=== PATIENT | female | born 1960 | race Caucasian/White ===

== ENCOUNTER 2022-10-27 15:31 | Outpatient (OUT) | payer OTHER, SELFPAY ==
[2022-10-29 04:38] LABS: FSH 86.9 mIU/mL (.); Progesterone <0.1 ng/mL (.); Prolactin 7.1 ng/mL (4.8-23.3)
[2022-11-03 22:06] LABS: Estrogens, Total 44 pg/mL (40-244)
== END 2022-10-27 15:32 ==
LOC: LAB 15:37
PROVIDERS: PCP Nurse Practitioner Family; Visit Provider Nurse Practitioner Family
DX: N95.1 Menopausal and female climacteric states (principal)
CPT/HCPCS: 36415; 82672; 83001; 84144; 84146

== ENCOUNTER 2023-03-14 17:28 | Emergency (ER) | payer OTHER, SELFPAY ==
[2023-03-14] VITALS (15 sets, daily range): BP systolic 113–147; BP diastolic 59–74; PULSE 77–90; RESP 15–24; TEMP 36.7; O2SAT 92–99; BMI 23.3
--- NOTE | 2023-03-14 17:42 | ED_ITS ---
HPI - General Adult General Chief complaint: Upper Respiratory Infection Stated complaint: URTI Time Seen by Provider: 03/14/23 17:34 Source: patient Mode of arrival: walk-in Limitations: no limitations History of Present Illness HPI narrative: patient is a 62-year-old female to history of chronic obstructive pulmonary disease who presents the emergency department for a one-week history of cough with sputum production. She denies objective fevers. She has had some diarrhea that has improved. She denies chest pain but states she has heaviness in her chest associated with the cough and mild shortness of breath. She states she has similar symptoms every year, she has had pneumonia in the past. She continues to smoke half a pack of cigarettes per day. She states her grandson was sick with upper respiratory symptoms and then she developed the same symptoms shortly after. She has completed a Z-Norris that was prescribed by her PCP, she finished this two days ago and reports no improvement. Related Data Home Medications Medication Instructions Recorded Confirmed albuterol sulfate 2.5 mg/3 mL 2.5 mg inhalation PRN 03/14/23 03/14/23 (0.083 %) solution for nebulization ezetimibe 10 mg tablet 10 mg PO DAILY 03/14/23 03/14/23 methocarbamol 500 mg tablet 500 mg PO DAILY 03/14/23 03/14/23 omeprazole 40 mg capsule,delayed 40 mg PO DAILY 03/14/23 03/14/23 release pantoprazole 40 mg tablet,delayed 40 mg PO DAILY 03/14/23 03/14/23 release venlafaxine 37.5 mg 37.5 mg PO DAILY 03/14/23 03/14/23 capsule,extended release 24 hr Previous Rx's Medication Instructions Recorded gxuluovswyfijcn-lygmgpsncilhija-YZ 5 ml PO Q6H PRN cough #118 mL 03/14/23 2 mg-30 mg-10 mg/5 mL oral syrup (Bromfed DM) doxycycline hyclate 100 mg capsule 100 mg PO BID 7 days #14 caps 03/14/23 Allergies Allergy/AdvReac Type Severity Reaction Status Date / Time Penicillins Allergy Mild Verified 03/14/23 17:42 Review of Systems ROS Constitutional Denies: fever or chills Ears, nose, mouth, and throat Reports: nasal congestion; Denies: throat pain Cardiovascular Denies: chest pain Respiratory Reports: shortness of breath, cough and wheezing Gastrointestinal Denies: nausea or vomiting Genitourinary Denies: painful urination Musculoskeletal Denies: back pain Integumentary/Breast Denies: rash Hematologic/Lymphatic Denies: easy bruising PFSH [facility] Social History Smoking status: Current every day smoker Exam Narrative Exam Narrative: Gen.: Awake, alert, in no distress Head: Normocephalic, atraumatic ENT: Moist mucous membranes Respiratory: No respiratory distress, inspiratory and expiratory wheezing with scattered rhonchi, patient speaks in full sentences Cardio: Regular rate and rhythm Extremities: Moves extremities equally, no pedal edema Psych: Normal mood and affect Neuro: No focal neuro deficit Skin: Warm, dry, intact Constitutional Vital Signs, click to edit/add: Last Vital Signs Temp 98.1 F 03/14/23 17:34 Pulse 85 03/14/23 18:27 Resp 20 03/14/23 18:27 BP 147/74 H 03/14/23 17:34 Pulse Ox 93 L 03/14/23 18:17 O2 Del Method Room Air 03/14/23 17:34 Course Vital Signs Vital signs: Vital Signs Temperature 98.1 F 03/14/23 17:34 Pulse Rate 89 03/14/23 17:34 Respiratory Rate 18 03/14/23 17:34 Blood Pressure 147/74 H 03/14/23 17:34 Pulse Oximetry 96 03/14/23 17:34 Oxygen Delivery Method Room Air 03/14/23 17:34 Temperature 98.1 F 03/14/23 17:34 Pulse Rate 85 03/14/23 18:27 Respiratory Rate 20 03/14/23 18:27 Blood Pressure 147/74 H 03/14/23 17:34 Pulse Oximetry 93 L 03/14/23 18:17 Oxygen Delivery Method Room Air 03/14/23 17:34 Medical Decision Making MDM Narrative Medical decision making narrative: lab studies within normal limits, chest x-ray with no evidence of acute cardiopulmonary changes. Patient treated with breathing treatments in the Emergency Room, she does not wish to take additional steroids and she states they do not make her feel well. She will be placed on doxycycline and Bromfed- DM. Continue breathing treatments at home and return to the Emergency Room if symptoms change or worsen. Medical Records Medical records reviewed: Yes I reviewed the patient's medical records Lab Data Lab results reviewed: Yes I reviewed the patient's lab results Labs: Lab Results 03/14/23 Range/Units 18:00 WBC 4.3 (4.0-11.0) 10^3/uL RBC 4.04 L (4.20-5.40) 10^6/uL Hgb 12.7 (12.0-16.0) g/dL Hct 37.9 (36.0-48.0) % MCV 93.8 (81.0-99.0) fL MCH 31.4 (26.7-34.0) pg MCHC 33.5 (29.9-35.2) g/dL RDW 12.6 (11.0-15.0) % Plt Count 207 (150-450) 10^3/uL MPV 11.2 (9.5-13.5) fL Neut % (Auto) 40.0 L (43.0-75.0) % Lymph % (Auto) 43.4 (20.5-60.0) % [place] % (Auto) 14.8 H (1.7-12.0) % Eos % (Auto) 0.7 L (0.9-7.0) % Baso % (Auto) 0.9 (0.2-2.0) % Neut # (Auto) 1.7 (1.4-6.5) 10^3/uL Lymph # (Auto) 1.9 (1.2-3.8) 10^3/uL [place] # (Auto) 0.6 (0.3-0.8) 10^3/uL Eos # (Auto) 0.0 (0.0-0.7) 10^3/uL Baso # (Auto) 0.0 (0.0-0.1) 10^3/uL Abs Immat Gran (auto) 0.01 (0.00-0.03) 10^3/uL Imm/Tot Granulo (auto) 0.2 (0.0-0.5) % Sodium 139 (136-145) mmol/L Potassium 3.5 (3.5-5.1) mmol/L Chloride 102 (98-107) mmol/L Carbon Dioxide 30.1 (21.0-32.0) mmol/L Anion Gap 10.4 BUN 20.0 H (7.0-18.0) mg/dL Creatinine 1.01 (0.55-1.02) mg/dL Est GFR ( Amer) >60 (>=60) Est GFR (Non-Af Amer) 55 L (>=60) BUN/Creatinine Ratio 19.8 Glucose 133 H (74-106) mg/dL Calcium 9.4 (8.5-10.1) mg/dL Total Bilirubin 0.2 (0.2-1.0) mg/dL AST 13 L (15-37) U/L ALT 20 (14-59) U/L Alkaline Phosphatase 31 L (46-116) U/L Troponin I High Sens <4.0 L (4.0-51.3) pg/mL NT-Pro-B Natriuret Pep 131.0 (<=900.0) pg/mL Total Protein 6.6 (6.4-8.2) g/dL Albumin 3.4 (3.4-5.0) g/dL Globulin 3.2 g/dL Albumin/Globulin Ratio 1.1 Imaging Data Chest x-ray: Attestation: I have reviewed the pertinent imaging results. ECG Data Attestation: I personally reviewed and interpreted this ECG as follows: (normal sinus rhythm at a rate of eighty-one, no acute ST elevation or ectopy. EKG reviewed by attending physician) Discharge Plan Discharge Chief Complaint: Upper Respiratory Infection Clinical Impression: Upper respiratory infection, Bronchitis Patient Disposition: Home, Self-Care Time of Disposition Decision: 18:57 Prescriptions / Home Meds: New doxycycline hyclate 100 mg capsule 100 mg PO BID 7 Days Qty: 14 0RF cnbnuvgdyuyyaaj-zpuwsopxs-XL [Bromfed DM] 2-30-10 mg/5 mL syrup 5 ml PO Q6H PRN (Reason: cough) Qty: 118 0RF No Action albuterol sulfate 2.5 mg /3 mL (0.083 %) solution for nebulization 2.5 mg inhalation PRN ezetimibe 10 mg tablet 10 mg PO DAILY venlafaxine 37.5 mg capsule,extended release 24hr 37.5 mg PO DAILY pantoprazole 40 mg tablet,delayed release (DR/EC) 40 mg PO DAILY omeprazole 40 mg capsule,delayed release(DR/EC) 40 mg PO DAILY methocarbamol 500 mg tablet 500 mg PO DAILY Instructions: Upper Respiratory Infection (ED), Acute Bronchitis (ED) Stand Alone Forms: Portal Instructions Referrals: GELACIO WASHINGTON [Primary Care Provider] - 1 week
--- NOTE | 2023-03-14 17:46 | PC.NURSE ---
Patient reports having cough/congestion x 10 days. seen at urgent care and given b-imu-ctsyxlmj 2 days ago. was also given a steroid pack but did not take due to intolerance to this in the past. patient reports productive cough that tastes like its infected. Patient reports sputum is thick and sometimes white, sometimes green. Patient reports history of pneumonia when having symptoms like this. Patient is a smoker but states she has only been able to smoke 2 cigarettes today. patient also taking zyrtec. grandson at home is ill with congestion as well.
--- NOTE | 2023-03-14 17:48 | XR_ITS ---
The [address] [address] Patient Name: JUAN DAUGHERTY MRN: [id number] date: 1960 Sex: F Assigned Patient Location: ED.MAIN Current Patient Location: ER Accession/Order Number: [id number] Exam Date: 03/14/2023 18:05 Report Date: 03/14/2023 18:50 At the request of: TOBY QUINTERO Procedure: XR chest 1V EXAMINATION: XR chest 1V 03/14/2023 3:49 PM PDT HISTORY: Cough TECHNIQUE: Single frontal view of the chest acquired. COMPARISONS: Chest x-ray 10/26/2012 FINDINGS: Lines/tubes/other: None. Heart and mediastinum: The heart and the mediastinum are within normal limits for technique. Bones: No acute osseous abnormality. Lungs: The lungs are clear. There is no evidence of pneumonia or pulmonary edema. Pleura: There is no significant pleural effusion or pneumothorax. Other: None. XR/XR chest 1V IMPRESSION: No acute cardiopulmonary abnormality. Electronically authenticated by: CHAVO CATHERINE Date: 03/14/2023 18:50
--- NOTE | 2023-03-14 17:48 | ECG_ITS ---
The [facility] Test Date: 2023-03-14 Pat Name: JUAN DAUGHERTY Department: Room: - Gender: Female Database Manager: : 1960 Requested By: GELACIO WASHINGTON Order Number: [id number] Reading MD: RAMY BOONE Measurements Intervals [place] Rate: 81 P: 90 NV: 160 QRS: -60 QRSD: 122 T: 67 QT: 378 QTc: 415 Interpretive Statements 1100 Sinus rhythm 2420 RSR (QR) in lead V1/V2, consistent with right ventricular conduction delay 2630 Left anterior fascicular block 3434 Septal myocardial infarction, age undetermined 9150 abnormal ECG No previous ECG available for comparison Electronically Signed On 03-15-2023 7:15:34 EDT by RAMY BOONE
[2023-03-14] MEDS: ALBUTEROL SULFATE 2.5 MG/3 ML VIAL NEB IH (18:12)
[2023-03-14] MEDS: IPRATROPIUM/ALBUTEROL SULFATE 3 ML AMPUL.NEB IH (18:12)
[2023-03-14 18:14] LABS: Basophils Percent Auto 0.9 % (0.2-2.0); Eosinophils Percent Auto 0.7 % (0.9-7.0); Hematocrit 37.9 % (36.0-48.0); Hemoglobin 12.7 g/dL (12.0-16.0); Immature Granulocytes Abs Auto 0.01 10^3/uL (0.00-0.03); Immature Granulocytes Pct Auto 0.2 % (0.0-0.5); Lymphocytes Absolute Auto 1.9 10^3/uL (1.2-3.8); Lymphocytes Percent Auto 43.4 % (20.5-60.0); Mean Corpuscular HGB Conc 33.5 g/dL (29.9-35.2); Mean Corpuscular Hemoglobin 31.4 pg (26.7-34.0); Mean Corpuscular Volume 93.8 fL (81.0-99.0); Mean Platelet Volume 11.2 fL (9.5-13.5); Monocytes Absolute Auto 0.6 10^3/uL (0.3-0.8); Monocytes Percent Auto 14.8 % (1.7-12.0); Neutrophils Absolute Auto 1.7 10^3/uL (1.4-6.5); Platelet Count 207 10^3/uL (150-450); Red Blood Count 4.04 10^6/uL (4.20-5.40); Red Cell Distribution Width 12.6 % (11.0-15.0); White Blood Count 4.3 10^3/uL (4.0-11.0)
[2023-03-14 18:37] LABS: Alanine Aminotransferase 20 U/L (14-59); Albumin Globulin Ratio 1.1; Albumin Level 3.4 g/dL (3.4-5.0); Alkaline Phosphatase 31 U/L (46-116); Anion Gap 10.4; Aspartate Amino Transferase 13 U/L (15-37); BUN Creatinine Ratio 19.8; Bilirubin Total 0.2 mg/dL (0.2-1.0); Calcium 9.4 mg/dL (8.5-10.1); Carbon Dioxide 30.1 mmol/L (21.0-32.0); Chloride 102 mmol/L (98-107); Estimated GFR (African America >60 (>=60); Estimated GFR (Non-African Ame 55 (>=60); Globulin 3.2 g/dL; Glucose 133 mg/dL (74-106); Potassium 3.5 mmol/L (3.5-5.1); Sodium 139 mmol/L (136-145); Total Protein 6.6 g/dL (6.4-8.2); Troponin I High Sensitivity <4.0 pg/mL (4.0-51.3)
== END 2023-03-14 19:16 | disposition home or self-care (01) ==
PROVIDERS: Physician Assistant; Emergency Provider Emergency Medicine; PCP Nurse Practitioner Family
DX: J06.9 Acute upper respiratory infection, unspecified (principal); J44.9 Chronic obstructive pulmonary disease, unspecified; F17.210 Nicotine dependence, cigarettes, uncomplicated; Z79.899 Other long term (current) drug therapy
CPT/HCPCS: 36415; 71045; 80053; 83880; 84484; 85025; 93005; 94640; 99285

== ENCOUNTER 2023-03-31 14:48 | Outpatient (OUT) | payer OTHER, SELFPAY ==
[2023-03-31 15:31] LABS: Bilirubin Urine NEGATIVE (NEGATIVE); Blood Urine NEGATIVE (NEGATIVE); Clarity Urine CLEAR (CLEAR); Color Urine YELLOW (YELLOW); Glucose Urine UA NEGATIVE (NEGATIVE); Ketones Urine NEGATIVE (NEGATIVE); Leukocyte Esterase Urine NEGATIVE (NEGATIVE); Nitrite Urine NEGATIVE (NEGATIVE); Protein Urine NEGATIVE (NEG/TRACE)
[2023-03-31 15:36] LABS: WBC Urine 0-2 #/HPF (NONE SEEN)
[2023-03-31 15:37] LABS: Bacteria Urine NONE SEEN #/HPF (NONE SEEN); Cast Seen? SEEN #/LPF (NONE SEEN); Crystals Seen? None Seen #/HPF (None Seen); Hyaline Casts Urine RARE; Mucus Urine NONE SEEN (NONE SEEN); RBC Urine NONE SEEN #/HPF (0-2); Squamous Epithelial Cell Urine RARE #/LPF (NONE/RARE)
== END 2023-03-31 14:49 | disposition home or self-care (01) ==
PROVIDERS: PCP Nurse Practitioner Family; Visit Provider Nurse Practitioner Family
DX: N39.0 Urinary tract infection, site not specified (principal)
CPT/HCPCS: 81001; 87086

== ENCOUNTER 2023-04-07 12:17 | Outpatient (OUT) | payer OTHER, SELFPAY ==
--- NOTE | 2023-04-07 12:21 | US_ITS ---
The [address] [address] Patient Name: JUAN DAUGHERTY MRN: [id number] date: 1960 Sex: F Assigned Patient Location: US Current Patient Location: US Accession/Order Number: [id number] Exam Date: 04/07/2023 12:27 Report Date: 04/07/2023 15:20 At the request of: SHANE CERDA Procedure: US pelvis EXAMINATION: US pelvis HISTORY: Pelvic Pain R10.2 COMPARISON: No relevant comparison available. FINDINGS: The uterus is not observed consistent with the provided history of hysterectomy The ovaries are not observed No free fluid or mass US/US pelvis IMPRESSION: Nonvisualization of the uterus and ovaries Electronically authenticated by: EDWARD KUMAR Date: 04/07/2023 15:20
--- NOTE | 2023-04-07 12:21 | US_ITS ---
The [address] [address] Patient Name: JUAN DAUGHERTY MRN: [id number] date: 1960 Sex: F Assigned Patient Location: US Current Patient Location: US Accession/Order Number: [id number] Exam Date: 04/07/2023 12:27 Report Date: 04/07/2023 13:44 At the request of: SHANE CERDA Procedure: US renal bladder EXAM: US renal bladder HISTORY: Dysuria R30.0 COMPARISON: None. TECHNIQUE: Ultrasound of the kidneys FINDINGS: The right kidney measures 13.0 x 6.6 x 5.4 cm and appears normal. The left kidney has been surgically removed. US/US renal bladder IMPRESSION: Normal-appearing right kidney. Status post left nephrectomy. Electronically authenticated by: AMADOR MYERS Date: 04/07/2023 13:44
== END 2023-04-07 12:18 | disposition home or self-care (01) ==
LOC: US 12:18
PROVIDERS: PCP Nurse Practitioner Family; Visit Provider Family Medicine
DX: R30.0 Dysuria (principal); R10.2 Pelvic and perineal pain; Z90.5 Acquired absence of kidney
CPT/HCPCS: 76770; 76856; 87070

== ENCOUNTER 2023-04-07 13:17 | Outpatient (REF) | payer OTHER, SELFPAY | END 2023-04-07 13:18 | disposition home or self-care (01) | LOC: LAB 13:17 | PROVIDERS: PCP Nurse Practitioner Family; Visit Provider Nurse Practitioner Family | DX: R30.0 Dysuria (principal) | CPT/HCPCS: 87070 ==

== ENCOUNTER 2023-10-07 08:06 | Outpatient (OUT) | payer OTHER, SELFPAY ==
--- OUTSIDE RECORDS SUMMARY | 2023-10-07 08:11 | XMS_ITS | CCD ---
Author Organization [facility] Care Team Providers Care Curing Finisher Name Role Phone GAUTAM ROBERTO Admitting Unavailable FELISA, GAUTAM Attending Unavailable TABATHA, CARRILLO Referring Unavailable TABATHA, CARRILLO Primary Care Unavailable FELISA, GAUTAM Admitting Unavailable FELISA, GAUTAM Attending Unavailable TABATHA, CARRILLO Referring Unavailable TABATHA, CARRILLO Primary Care Unavailable FELISA, GAUTAM Admitting Unavailable FELISA, GAUTAM Attending Unavailable TABATHA, CARRILLO Referring Unavailable TABATHA, CARRILLO Primary Care Unavailable FELISA, GAUTAM Admitting Unavailable FELISA, GAUTAM Attending Unavailable SELF, REFERRED Referring Unavailable TABATHA, CARRILLO Primary Care Unavailable FELISA, GAUTAM Admitting Unavailable FELISA, GAUTAM Attending Unavailable TABATHA, CARRILLO Referring Unavailable TABATHA, CARRILLO Primary Care Unavailable FELISA, GAUTAM Admitting Unavailable FELISA, GAUTAM Attending Unavailable TABATHA, CARRILLO Referring Unavailable TABATHA, CARRILLO Primary Care Unavailable PADMINI, GELACIO Primary Care Unavailable GRILLIS ., DR MIRIAM Nayak Admitting Unavaila ble ANIYA ., DR MIRIAM Nayak Attending Unavaila ralph TAPIA, DR AMADOR Carbajal Consulting Unavailable GRILLIS ., DR MIRIAM Nayak Consulting Unavaila ble GRILLIS ., DR MIRIAM Nayak Procedure Practitioner U MIRIAM Cho Unavailable IRINA ESCALANTE Consulting Unavailable JENNIFER BOOGIE Consulting Unavailable GEMBUSMERARI Consulting Unavailable PADMINI GELACIO Admitting Unavailable PADMINI, GELACIO Attending Unavailable PADMINI, GELACIO Primary Care Unavailable GELACIO WASHINGTON Consulting Unavailable Allergies Allergy Classification Reported Allergen(s) Allergy Type Date of Onset Reaction(s) Facility (2 sources) Ciprofloxacin Drug Allergy 11-11-2014 [facility] (2 sources) Penicillins Drug allergy (disorder) 07-02-2014 [facility] Problems Active Problems Problem Classification Problem Date Documented Da te Episodic/Chronic Anxiety disorders (1 source) Anxiety disorder, unspecified; Translations: [ANXIETY DISORDER UNSPECIFIED] Onset: 04-27-2022 Chronic Esophageal disorders (1 source) Gastro-esophageal reflux disease without esophagitis; Translations: [GERD WITHOUT ESOPHAGITIS] Onset: 04-27-2022 Chronic Mood disorders (1 source) Mood disorders; Translations: [DEPRESSION UNSPECIFIED] Onset: 04-27-2022 Nutritional deficiencies (4 sources) Vitamin D deficiency, unspecified; Translations: [VITAMIN D DEFICIENCY, UNSPECIFIED] Onset: 09-27-2017 Chronic Osteoporosis (1 source) Age-related osteoporosis without current pathological fracture; Translations: [AGE-RELATED OSTEOPOROSIS W/O CURRENT PATHOLOGICAL FRACTURE] Onset: 03-23-2018 Chronic Substance-related disorders (1 source) Nicotine dependence, cigarettes, uncomplicated; Translations: [NICOTINE DEPEND CIGARETTES UNCOMP] Onset: 04-27-2022 Chronic Unclassified (2 sources) DX Onset: 03-23-2018 Unclassified (1 source) CONTACT W/AND (SUSP) EXPOS COVID-19; Translations: [CONTACT W/AND (SUSP) EXPOS COVID-19] Onset: 04-27-2022 Past or Other Problems Problem Classification Problem Date Documented Da te Episodic/Chronic Appendicitis and other appendiceal conditions (3 sources) Acute appendicitis with perforation and localized peritonitis, without abscess; Translations: [Acute appendicitis with perforation and localized peritonitis, with abscess] Onset: 04-13-2022 Episodic Cancer of cervix (1 source) Personal history of malignant neoplasm of cervix uteri; Translations: [PERS HX MALIG NEOPLASM CERV UTERI] Onset: 04-27-2022 Episodic Complication of device; implant or graft (1 source) Fracture of humerus following insertion of orthopedic implant, joint prosthesis, or bone plate, right arm; Translations: [FX HUMERUS FOL INSRT ORTHO IMPLNT/PROSTH/BONE PLT, RIGHT ARM] Onset: 08-30-2017 Episodic Contraceptive and procreative management (1 source) Tubal ligation status; Translations: [TUBAL LIGATION STATUS] Onset: 04-27-2022 Episodic Fracture of upper limb (10 sources) Other intraarticular fracture of lower end of right radius, initial encounter for closed fracture; Translations: [Unspecified fracture of upper end of right humerus, subsequent encounter for fracture with routine healing] Onset: 08-30-2017 Episodic Other gastrointestinal disorders (1 source) Peritoneal adhesions (postprocedural) (postinfection); Translations: [PERITONEAL ADHES POSTPROC POSTINF] Onset: 04-27-2022 Episodic Residual codes; unclassified (1 source) Laparoscopic surgical procedure converted to open procedure; Translations: [LAP SURG PROC CONVERT TO OPEN PROC] Onset: 04-27-2022 Episodic Residual codes; unclassified (1 source) Acquired absence of other specified parts of digestive tract; Translations: [ACQ ABSENCE OTH PART DIGESTV TRACT] Onset: 04-27-2022 Episodic Residual codes; unclassified (1 source) Acquired absence of both cervix and uterus; Translations: [ACQUIRED ABSENCE BOTH CERVIX AND UTERUS] Onset: 04-27-2022 Episodic Residual codes; unclassified (1 source) Acquired absence of kidney; Translations: [ACQUIRED ABSENCE OF KIDNEY] Onset: 04-27-2022 Episodic Results Test Name Value Interpretation Reference Range Facility INSULINon 08-06-2022 Insulin 4.2 uIU/mL Normal 2.6-24.9 [facility] Comment on above: Performed By: #### A 1C #### [facility] [address] [place] [address] Dr. Nu Love CBC AUTO DIFFon 08-05-2022 BASO # 0.0 103/ul Normal 0.0-0.1 [facility] Comment on above: Performed By: #### A 1C #### [facility] [address] [place] [address] Dr. Nu Love Basophils/100 WBC (Bld) 0.8 % Normal 0.2-2.0 [facility] Comment on above: Performed By: #### A 1C #### [facility] [address] [place] [address] Dr. Nu Love EO # 0.1 103/ul Normal 0.0-0.7 [facility] Comment on above: Performed By: #### A 1C #### [facility] [address] [place] [address] Dr. Nu Love Eosinophils/100 WBC (Bld) 2.4 % Normal 0.9-7.0 [facility] Comment on above: Performed By: #### A 1C #### [facility] [address] [place] [address] Dr. Nu Love Erythrocyte distribution width (RBC) [Ratio] 13.7 % Normal 11.0-15.0 [facility] Comment on above: Performed By: #### A 1C #### [facility] [address] [place] [address] Dr. Nu Love Hematocrit (Bld) [Volume fraction] 46.9 % Normal 36.0-48.0 [facility] Comment on above: Performed By: #### A 1C #### [facility] [address] [place] [address] Dr. Nu Love Hemoglobin (Bld) [Mass/Vol] 15.2 g/dL Normal 12.0-16.0 [facility] Comment on above: Performed By: #### A 1C #### [facility] [address] [place] [address] Dr. Nu Love IG # 0.01 10e3/ul Normal 0.00-0.03 [facility] Comment on above: Performed By: #### A 1C #### [facility] [address] [place] [address] Dr. Nu Love IG % 0.2 % Normal 0.0-0.5 [facility] Comment on above: Performed By: #### A 1C #### [facility] [address] [place] [address] Dr. Nu Love LYMPH # 2.0 103/ul Normal 1.2-3.8 [facility] Comment on above: Performed By: #### A 1C #### [facility] [address] [place] [address] Dr. Nu Love Lymphocytes/100 WBC (Bld) 40.9 % Normal 20.5-60.0 [facility] Comment on above: Performed By: #### A 1C #### [facility] [address] [place] [address] Dr. Nu Love MANUAL DIFF REQ NO Normal [facility] Comment on above: Performed By: #### A 1C #### [facility] [address] [place] [address] Dr. Nu Love MCH (RBC) [Entitic mass] 30.6 pg Normal 26.7-34.0 [facility] Comment on above: Performed By: #### A 1C #### [facility] [address] [address] [address] Nu Love MCHC (RBC) [Mass/Vol] 32.4 g/dL Normal 29.9-35.2 [facility] Comment on above: Performed By: #### A 1C #### [facility] [address] [address] [address] Nu Love MCV (RBC) [Entitic vol] 94.4 fL Normal 81.0-99.0 [facility] Comment on above: Performed By: #### A 1C #### [facility] [address] [place] [address] Dr. Nu Love MONO # 0.6 103/ul Normal 0.3-0.8 [facility] Comment on above: Performed By: #### A 1C #### [facility] [address] [place] [address] Dr. Nu Love Monocytes/100 WBC (Bld) 12.8 % Critically high 1.7-12.0 [facility] Comment on above: Performed By: #### A 1C #### [facility] [address] [place] [address] Dr. Nu Love NEUT # 2.1 103/ul Normal 1.4-6.5 [facility] Comment on above: Performed By: #### A 1C #### [facility] [address] [place] [address] Dr. Nu Love Neutrophils/100 WBC (Bld) 42.9 % Critically low 43.0-75.0 [facility] Comment on above: Performed By: #### A 1C #### [facility] [address] [place] [address] Dr. Nu Love Platelet mean volume (Bld) [Entitic vol] 11.6 fL Normal 9.5-13.5 [facility] Comment on above: Performed By: #### A 1C #### [facility] [address] [place] [address] Dr. Nu Love PLT 212 103/ul Normal 150-450 [facility] Comment on above: Performed By: #### A 1C #### [facility] [address] [address] [address] Nu Love RBC 4.97 106/ul Normal 4.20-5.40 [facility] Comment on above: Performed By: #### A 1C #### [facility] [address] [place] [address] Dr. Nu Love WBC 4.9 103/ul Normal 4.0-11.0 [facility] Comment on above: Performed By: #### A 1C #### [facility] [address] [place] [address] Dr. Nu Love FREE THYROXINE INDEX T7on FTI 2.74 Normal 1.30-4.50 [facility] Comment on above: Performed By: #### A 1C #### [facility] [address] [place] [address] Dr. Nu Love T3U 36.0 % Normal 30.0-39.0 [facility] Comment on above: Performed By: #### A 1C #### [facility] [address] [place] [address] Dr. Nu Love T4 [Mass/Vol] 7.60 ug/dL Normal 4.80-13.90 [facility] Comment on above: Performed By: #### A 1C #### [facility] [address] [place] [address] Dr. Nu Love GLYCOHEMOGLOBIN A1Con 2022 ADA RECOMMENDATION SEE BELOW Normal [facility] Comment on above: Result Comment: ADA RECOMMENDED LIMIT 4.0 - 6.0 ADA THERAPEUTIC TARGET < 7.0 ACTION SUGGESTED > 7.0 Performed By: #### A 1C #### [facility] [address] [place] [address] Dr. Nu Love Glucose [Mass/Vol] 108 mg/dL Normal [facility] Comment on above: Performed By: #### A 1C #### [facility] [address] [place] [address] Dr. Nu Love HbA1c (Bld) [Mass fraction] 5.4 % Normal 4.5-6.2 [facility] Comment on above: Performed By: #### A 1C #### [facility] [address] [address] [address] Nu Love IRONon 08-05-2022 Iron [Mass/Vol] 107.0 ug/dL Normal 50.0-170.0 [facility] Comment on above: Performed By: #### I BENEDICT #### [facility] [address] [address] [address] Nu Love LIPID PROFILEon 08-05-2022 CHOL-HDL RATIO NORM SEE BELOW Normal [facility] Comment on above: Result Comment: 3.3 - 4.4 LOW RISK 4.4 - 7.1 AVERAGE RISK 7.1 - 11.0 MODERATE RISK >11.0 HIGH RISK Performed By: #### A 1C #### [facility] [address] [place] [address] Dr. Nu Love Cholesterol [Mass/Vol] 237 mg/dL Critically high <=200 [facility] Comment on above: Performed By: #### A 1C #### [facility] [address] [address] [address] Nu Love Cholesterol in HDL [Mass/Vol] 78 mg/dL Critically high 40-60 [facility] Comment on above: Performed By: #### A 1C #### [facility] [address] [place] [address] Dr. Nu Love Cholesterol in LDL [Mass/Vol] 140.4 mg/dL Normal [facility] Comment on above: Performed By: #### A 1C #### [facility] [address] [address] [address] Nu Love Cholesterol.total/Cho lesterol in HDL [Mass ratio] 3.0 {ratio} Normal [facility] Comment on above: Performed By: #### A 1C #### [facility] [address] [place] [address] Dr. Nu Love HDL NORMAL > or = 60 mg/dl - LOW CARDIOVASCULAR RISK <40 mg/dl - HIGH CARDIOVASCULAR RISK Normal [facility] Comment on above: Performed By: #### A 1C #### [facility] [address] [place] [address] Dr. Nu Love LDL CALC NORMAL SEE BELOW Normal [facility] Comment on above: Result Comment: <100 mg/dl OPTIMAL 100 - 129 mg/dl NEAR OR ABOVE OPTIMAL 130 - 159 mg/dl BORDERLINE HIGH 160 - 189 mg/dl HIGH >190 mg/dl VERY HIGH Performed By: #### A 1C #### [facility] [address] [address] [address] Nu Love Triglyceride [Mass/Vol] 93 mg/dL Normal <=150 [facility] Comment on above: Performed By: #### A 1C #### [facility] [address] [address] [address] Nu Love VLDL CALC 18.6 mg/dL Normal [facility] Comment on above: Performed By: #### A 1C #### [facility] [address] [place] [address] Dr. Nu Love PROF 14(COMP METB)on 023 Albumin [Mass/Vol] 4.0 g/dL Normal 3.4-5.0 [facility] Comment on above: Performed By: #### A 1C #### [facility] [address] [address] [address] Nu Love Albumin/Globulin [Mass ratio] 1.3 {ratio} Normal [facility] Comment on above: Performed By: #### A 1C #### [facility] [address] [place] [address] Dr. Nu Love ALP [Catalytic activity/Vol] 42 U/L Critically low 46-116 [facility] Comment on above: Performed By: #### A 1C #### [facility] [address] [address] [address] Nu Love ALT [Catalytic activity/Vol] 22 U/L Normal 14-59 [facility] Comment on above: Performed By: #### A 1C #### [facility] [address] [address] [address] Nu Love Anion gap [Moles/Vol] 12.4 mmol/L Normal [facility] Comment on above: Performed By: #### A 1C #### [facility] [address] [address] [address] Nu Love AST [Catalytic activity/Vol] 17 U/L Normal 15-37 [facility] Comment on above: Performed By: #### A 1C #### [facility] [address] [address] [address] Nu Love Bilirubin [Mass/Vol] 0.3 mg/dL Normal 0.2-1.0 [facility] Comment on above: Performed By: #### A 1C #### [facility] [address] [place] [address] Dr. Nu Love Calcium [Mass/Vol] 9.4 mg/dL Normal 8.5-10.1 [facility] Comment on above: Performed By: #### A 1C #### [facility] [address] [place] [address] Dr. Nu Love Chloride [Moles/Vol] 105 mmol/L Normal 98-107 [facility] Comment on above: Performed By: #### A 1C #### [facility] [address] [place] [address] Dr. Nu Love CO2 [Moles/Vol] 33.3 mmol/L Critically high 21.0-32.0 [facility] Comment on above: Performed By: #### A 1C #### [facility] [address] [place] [address] Dr. Nu Love Creatinine [Mass/Vol] 0.98 mg/dL Normal 0.55-1.02 [facility] Comment on above: Performed By: #### A 1C #### [facility] [address] [place] [address] Dr. Nu Love EGFR-AF OMANI >60 Normal >=60 [facility] Comment on above: Performed By: #### A 1C #### [facility] [address] [place] [address] Dr. Nu Love EGFR-NON AF OMANI 57 mL/min/1.73m2 Critically low >=60 [facility] Comment on above: Performed By: #### A 1C #### [facility] [address] [place] [address] Dr. Nu Love Globulin (S) [Mass/Vol] 3.0 g/dL Normal [facility] Comment on above: Performed By: #### A 1C #### [facility] [address] [place] [address] Dr. Nu Love Glucose [Mass/Vol] 104 mg/dL Normal 74-106 [facility] Comment on above: Performed By: #### A 1C #### [facility] [address] [place] [address] Dr. Nu Love Potassium [Moles/Vol] 4.7 mmol/L Normal 3.5-5.1 [facility] Comment on above: Performed By: #### A 1C #### [facility] [address] [place] [address] Dr. Nu Love Protein [Mass/Vol] 7.0 g/dL Normal 6.4-8.2 [facility] Comment on above: Performed By: #### A 1C #### [facility] [address] [place] [address] Dr. Nu Love Sodium [Moles/Vol] 146 mmol/L Critically high 136-145 [facility] Comment on above: Performed By: #### A 1C #### [facility] [address] [place] [address] Dr. Nu Love Urea nitrogen [Mass/Vol] 16.0 mg/dL Normal 7.0-18.0 [facility] Comment on above: Performed By: #### A 1C #### [facility] [address] [place] [address] Dr. Nu Love Urea nitrogen/Creatinine [Mass ratio] 16.3 mg/mg Normal [facility] Comment on above: Performed By: #### A 1C #### [facility] [address] [place] [address] Dr. Nu Love TSHon 08-05-2022 TSH 2.234 uIU/mL Normal 0.358-3.740 [facility] Comment on above: Performed By: #### A 1C #### [facility] [address] [place] [address] Dr. Nu Love CBC AUTO DIFFon 04-13-2022 BASO # 0.0 103/ul Normal 0.0-0.1 [facility] Comment on above: Performed By: #### C BC #### [facility] [address] [place] [address] Dr. Nu Love Basophils/100 WBC (Bld) 0.2 % Normal 0.2-2.0 [facility] Comment on above: Performed By: #### C BC #### [facility] [address] [place] [address] Dr. Nu Love EO # 0.1 103/ul Normal 0.0-0.7 [facility] Comment on above: Performed By: #### C BC #### [facility] [address] [place] [address] Dr. Nu Love Eosinophils/100 WBC (Bld) 1.3 % Normal 0.9-7.0 [facility] Comment on above: Performed By: #### C BC #### [facility] [address] [place] [address] Dr. Nu Love Erythrocyte distribution width (RBC) [Ratio] 12.8 % Normal 11.0-15.0 [facility] Comment on above: Performed By: #### C BC #### [facility] [address] [place] [address] Dr. Nu Love Hematocrit (Bld) [Volume fraction] 37.8 % Normal 36.0-48.0 [facility] Comment on above: Performed By: #### C BC #### [facility] [address] [place] [address] Dr. Nu Love Hemoglobin (Bld) [Mass/Vol] 12.3 g/dL Normal 12.0-16.0 [facility] Comment on above: Performed By: #### C BC #### [facility] [address] [place] [address] Dr. Nu Love IG # 0.01 10e3/ul Normal 0.00-0.03 [facility] Comment on above: Performed By: #### C BC #### [facility] [address] [place] [address] Dr. Nu Love IG % 0.1 % Normal 0.0-0.5 [facility] Comment on above: Performed By: #### C BC #### [facility] [address] [place] [address] Dr. Nu Love LYMPH # 2.0 103/ul Normal 1.2-3.8 [facility] Comment on above: Performed By: #### C BC #### [facility] [address] [place] [address] Dr. Nu Love Lymphocytes/100 WBC (Bld) 19.7 % Critically low 20.5-60.0 [facility] Comment on above: Performed By: #### C BC #### [facility] [address] [place] [address] Dr. Nu Love MANUAL DIFF REQ NO Normal [facility] Comment on above: Performed By: #### C BC #### [facility] [address] [place] [address] Dr. Nu Love MCH (RBC) [Entitic mass] 30.9 pg Normal 26.7-34.0 [facility] Comment on above: Performed By: #### C BC #### [facility] [address] [place] [address] Dr. Nu Love MCHC (RBC) [Mass/Vol] 32.5 g/dL Normal 29.9-35.2 [facility] Comment on above: Performed By: #### C BC #### [facility] [address] [place] [address] Dr. Nu Love MCV (RBC) [Entitic vol] 95.0 fL Normal 81.0-99.0 [facility] Comment on above: Performed By: #### C BC #### [facility] [address] [place] [address] Dr. Nu Love MONO # 1.4 103/ul Critically high 0.3-0.8 [facility] Comment on above: Performed By: #### C BC #### [facility] [address] [place] [address] Dr. Nu Love Monocytes/100 WBC (Bld) 13.0 % Critically high 1.7-12.0 [facility] Comment on above: Performed By: #### C BC #### [facility] [address] [place] [address] Dr. Nu Love NEUT # 6.8 103/ul Critically high 1.4-6.5 [facility] Comment on above: Performed By: #### C BC #### [facility] [address] [place] [address] Dr. Nu Love Neutrophils/100 WBC (Bld) 65.7 % Normal 43.0-75.0 [facility] Comment on above: Performed By: #### C BC #### [facility] [address] [place] [address] Dr. Nu Love Platelet mean volume (Bld) [Entitic vol] 11.1 fL Normal 9.5-13.5 [facility] Comment on above: Performed By: #### C BC #### [facility] [address] [place] [address] Dr. Nu Love PLT 196 103/ul Normal 150-450 [facility] Comment on above: Performed By: #### C BC #### [facility] [address] [place] [address] Dr. Nu Love RBC 3.98 106/ul Critically low 4.20-5.40 [facility] Comment on above: Performed By: #### C BC #### [facility] [address] [place], [place] [id number] Dr. Nu Love WBC 10.4 103/ul Normal 4.0-11.0 [facility] Comment on above: Performed By: #### C BC #### [facility] [address] [place] [address] ABD/PELVIS WO CONon 04-13 CT ABD/PELVIS WO CON TECHNIQUE: CT abdomen and pelvis. Helically acquired axial images of the abdomen and pelvis from the diaphragm to the iliac crest and the iliac crest to the symphysis pubis. Sagittal and coronal multiplanar reconstructions. . HISTORY: Nausea and vomiting COMPARISON: No comparison FINDINGS: The lung bases appear clear. Heart size is normal. Patient is post cholecystectomy. Surgical clips are seen in the gallbladder fossa. The liver, spleen, pancreas and the right adrenal gland appear unremarkable on this noncontrast examination. Multiple surgical clips are seen in the left renal bed and adrenal. Patient appears post left adrenalectomy and left nephrectomy. The right kidney has an unremarkable noncontrast appearance. There is no evidence for right hydronephrosis or nephrolithiasis. No right ureteral calculus is seen. Nondistended urinary bladder is seen. The uterus is not visualized, suggestive of prior hysterectomy. Nonspecific bowel gas pattern is seen. Dilated appendix is seen which measures approximately 1 cm near its base. Ill-defined appearance of the mid to distal appendix is seen with likely associated extraluminal gas and stranding of mesenteric fat stranding as well as small ill-defined free fluid, suspicious for perforated appendicitis. A discrete walled off abnormal fluid collection is not visualized. Mild wall thickening of the adjacent terminal ileum and distal ileum is seen which may represent a local reactive inflammatory changes. Moderate to large volume of stool is seen in the colon. Sigmoid diverticula are seen without significant associated inflammatory changes. The vascular structures and should normal caliber. The abdominal wall and visualized soft tissues appear unremarkable. No acute osseous abnormality is seen. IMPRESSION: Findings suspicious for acute perforated appendicitis. A well-defined walled off abnormal fluid collection is not visualized. Mild wall thickening of the adjacent terminal ileum and distal ileum is seen which may represent a local reactive inflammatory changes. Sigmoid diverticulosis without CT evidence for diverticulitis. Moderate to large volume of stool is seen in the colon. Prior cholecystectomy, hysterectomy, left adrenalectomy and left nephrectomy. I discussed findings with Physician: AMADOR TAPIA in the ED at 10:26 PM. Electronically authenticated by: IRINA ESCALANTE Date: 2022-04-12 22:33 Normal [facility] Covid-19 PCR [facility]on 03-23 SARS-CoV-2 (COVID-19) RNA MAYNOR+probe Ql (Unsp spec) Not detected Normal NOT DETECTED [facility] Comment on above: Result Comment: When diagnostic testing is negative, the possibility of a false negative should be considered in the context of a patient's recent exposures and the presence of clinical signs and symptoms consistent with SARS-CoV-2. This test is not yet approved or cleared by the [place] FDA. When there are no FDA-approved or cleared tests available, and other criteria are met, FDA can make tests available under an emergency access mechanism called an Emergency Use Authorization (EUA). The EUA for this test is supported by the [place] of Health and Human Service's declaration that circumstances exist to justify the emergency use of in vitro diagnostics for the detection and/or diagnosis of the virus that causes COVID-19. This EUA will remain in effect for the duration of the COVID-19 declaration justifying emergency of IVDs, unless it is terminated or revoked by the FDA (after which the test may no longer be used). Performed By: #### A 1C #### [facility] [address] [place] [address] Dr. Nu Love PROF CHEM 8 (BAS METB)on Anion gap [Moles/Vol] 8.0 mmol/L Normal [facility] Comment on above: Performed By: #### B MP #### [facility] [address] [place] [address] Dr. Nu Love Calcium [Mass/Vol] 9.4 mg/dL Normal 8.5-10.1 [facility] Comment on above: Performed By: #### B MP #### [facility] [address] [place] [address] Dr. Nu Love Chloride [Moles/Vol] 104 mmol/L Normal 98-107 [facility] Comment on above: Performed By: #### B MP #### [facility] [address] [place] [address] Dr. Nu Love CO2 [Moles/Vol] 31.2 mmol/L Normal 21.0-32.0 [facility] Comment on above: Performed By: #### B MP #### [facility] [address] [place] [address] Dr. Nu Love Creatinine [Mass/Vol] 0.93 mg/dL Normal 0.55-1.02 [facility] Comment on above: Performed By: #### B MP #### [facility] [address] [place] [address] Dr. Nu Love EGFR-AF OMANI >60 Normal >=60 [facility] Comment on above: Performed By: #### B MP #### [facility] [address] [address] [address] Nu Love EGFR-NON AF OMANI >60 Normal >=60 [facility] Comment on above: Performed By: #### B MP #### [facility] [address] [address] [address] Nu Love Glucose [Mass/Vol] 95 mg/dL Normal 74-106 [facility] Comment on above: Performed By: #### B MP #### [facility] [address] [address] [address] Nu Love Potassium [Moles/Vol] 4.2 mmol/L Normal 3.5-5.1 [facility] Comment on above: Performed By: #### B MP #### [facility] [address] [place] [address] Dr. Nu Love Sodium [Moles/Vol] 139 mmol/L Normal 136-145 [facility] Comment on above: Performed By: #### B MP #### [facility] [address] [place] [address] Dr. Nu Loev Urea nitrogen [Mass/Vol] 18.0 mg/dL Normal 7.0-18.0 [facility] Comment on above: Performed By: #### B MP #### [facility] [address] [place] [address] Dr. Nu Love Urea nitrogen/Creatinine [Mass ratio] 19.4 mg/mg Normal [facility] Comment on above: Performed By: #### B MP #### [facility] [address] [place] [address] Dr. Nu Love CBC AUTO DIFFon 04-12-2022 BASO # 0.0 103/ul Normal 0.0-0.1 [facility] Comment on above: Performed By: #### C BC #### [facility] [address] [address] [address] Nu Love Basophils/100 WBC (Bld) 0.2 % Normal 0.2-2.0 [facility] Comment on above: Performed By: #### C BC #### [facility] [address] [place] [address] Dr. Nu Love EO # 0.0 103/ul Normal 0.0-0.7 [facility] Comment on above: Performed By: #### C BC #### [facility] [address] [place] [address] Dr. Nu Love Eosinophils/100 WBC (Bld) 0.1 % Critically low 0.9-7.0 [facility] Comment on above: Performed By: #### C BC #### [facility] [address] [place] [address] Dr. Nu Lvoe Erythrocyte distribution width (RBC) [Ratio] 12.8 % Normal 11.0-15.0 [facility] Comment on above: Performed By: #### C BC #### [facility] [address] [place] [address] Dr. Nu Love Hematocrit (Bld) [Volume fraction] 43.4 % Normal 36.0-48.0 [facility] Comment on above: Performed By: #### C BC #### [facility] [address] [place] [address] Dr. Nu Love Hemoglobin (Bld) [Mass/Vol] 14.5 g/dL Normal 12.0-16.0 [facility] Comment on above: Performed By: #### C BC #### [facility] [address] [place] [address] Dr. Nu Love IG # 0.05 10e3/ul Critically high 0.00-0.03 [facility] Comment on above: Performed By: #### C BC #### [facility] [address] [place] [address] Dr. Nu Love IG % 0.3 % Normal 0.0-0.5 [facility] Comment on above: Performed By: #### C BC #### [facility] [address] [place] [address] Dr. Nu Love LYMPH # 1.5 103/ul Normal 1.2-3.8 [facility] Comment on above: Performed By: #### C BC #### [facility] [address] [address] [address] Nu Love Lymphocytes/100 WBC (Bld) 10.2 % Critically low 20.5-60.0 [facility] Comment on above: Performed By: #### C BC #### [facility] [address] [address] [address] Nu Love MANUAL DIFF REQ NO Normal [facility] Comment on above: Performed By: #### C BC #### [facility] [address] [place] [address] Dr. Nu Love MCH (RBC) [Entitic mass] 31.2 pg Normal 26.7-34.0 [facility] Comment on above: Performed By: #### C BC #### [facility] [address] [place] [address] Dr. Nu Love MCHC (RBC) [Mass/Vol] 33.4 g/dL Normal 29.9-35.2 [facility] Comment on above: Performed By: #### C BC #### [facility] [address] [place] [address] Dr. Nu Love MCV (RBC) [Entitic vol] 93.3 fL Normal 81.0-99.0 [facility] Comment on above: Performed By: #### C BC #### [facility] [address] [place] [address] Dr. Nu Love MONO # 1.3 103/ul Critically high 0.3-0.8 [facility] Comment on above: Performed By: #### C BC #### [facility] [address] [place] [address] Dr. Nu Love Monocytes/100 WBC (Bld) 8.5 % Normal 1.7-12.0 [facility] Comment on above: Performed By: #### C BC #### [facility] [address] [place] [address] Dr. Nu Love NEUT # 12.2 103/ul Critically high 1.4-6.5 [facility] Comment on above: Performed By: #### C BC #### [facility] [address] [place] [address] Dr. Nu Love Neutrophils/100 WBC (Bld) 80.7 % Critically high 43.0-75.0 [facility] Comment on above: Performed By: #### C BC #### [facility] [address] [place] [address] Dr. Nu Love Platelet mean volume (Bld) [Entitic vol] 11.2 fL Normal 9.5-13.5 [facility] Comment on above: Performed By: #### C BC #### [facility] [address] [place] [address] Dr. Nu Love PLT 223 103/ul Normal 150-450 [facility] Comment on above: Performed By: #### C BC #### [facility] [address] [place] [address] Dr. uN Love RBC 4.65 106/ul Normal 4.20-5.40 [facility] Comment on above: Performed By: #### C BC #### [facility] [address] [place] [address] Dr. Nu Love WBC 15.1 103/ul Critically high 4.0-11.0 [facility] Comment on above: Performed By: #### C BC #### [facility] [address] [place] [address] Dr. Nu Love CULTURE URINEon 04-12-2022 CULTURE URINE Culture Observations: NO GROWTH. Normal [facility] Comment on above: Performed By: #### U RCX #### [facility] [address] [place] [address] Dr. Nu Love ER URINE PROFILEon 2 Bilirubin Ql (U) MODERATE Abnormal NEGATIVE [facility] Comment on above: Performed By: #### U MICRO, ERUR #### [facility] [address] [place] [address] Dr. Nu Love Clarity (U) CLEAR Normal CLEAR [facility] Comment on above: Performed By: #### U MICRO, ERUR #### [facility] [address] [place] [address] Dr. Nu Love Color (U) DK. ORANGE Abnormal YELLOW [facility] Comment on above: Performed By: #### U MICRO, ERUR #### [facility] [address] [address] [address] Nu BEAN A micrscopic examination will be performed if indicated. Normal [facility] Comment on above: Performed By: #### U MICRO, ERUR #### [facility] [address] [address] [address] Nu oLve Glucose Ql (U) Negative Normal NEGATIVE The [facility] Comment on above: Performed By: #### U MICRO, ERUR #### [facility] [address] [address] [address] Nu Love Hemoglobin Ql (U) MODERATE Abnormal NEGATIVE [facility] Comment on above: Performed By: #### U MICRO, ERUR #### [facility] [address] [place] [address] Dr. Nu Love Ketones Ql (U) TRACE Abnormal NEGATIVE The [facility] Comment on above: Performed By: #### U MICRO, ERUR #### [facility] [address] [place] [address] Dr. Nu Love LEUKOCYTES Negative Normal NEGATIVE [facility] Comment on above: Performed By: #### U MICRO, ERUR #### [facility] [address] [place] [address] Dr. Nu Love Nitrite Ql (U) Negative Normal NEGATIVE The [facility] Comment on above: Performed By: #### U MICRO, ERUR #### [facility] [address] [address] [address] Nu Love pH (U) 5.5 [pH] Normal 5-9 [facility] Comment on above: Performed By: #### U MICRO, ERUR #### [facility] [address] [address] [address] Nu Love Protein (U) [Mass/Vol] 30 mg/dL Abnormal NEGATIVE/ TRACE [facility] Comment on above: Performed By: #### U MICRO, ERUR #### [facility] [address] [place] [address] Dr. Nu Love SPEC GRAVITY >=1.030 Abnormal 1.005-<=1.025 [facility] Comment on above: Performed By: #### U MICRO, ERUR #### [facility] [address] [place] [address] Dr. uN Love UR MICRO IND INDICATED Normal [facility] Comment on above: Performed By: #### U MICRO, ERUR #### [facility] [address] [place] [address] Dr. Nu Love Urobilinogen Qn (U) 1.0 {Juan A'U}/dL Normal 0.2 - 1. 0 [facility] Comment on above: Performed By: #### U MICRO, ERUR #### [facility] [address] [place] [address] Dr. Nu Love LIPASEon 04-12-2022 Lipase [Catalytic activity/Vol] 40.0 U/L Critically low 73.0-393.0 [facility] Comment on above: Performed By: #### C MP, LIPA #### [facility] [address] [place] [address] Dr. Nu Love PROF 14(COMP METB)on 022 Albumin [Mass/Vol] 3.6 g/dL Normal 3.4-5.0 [facility] Comment on above: Performed By: #### C MP, LIPA #### [facility] [address] [place] [address] Dr. Nu Love Albumin/Globulin [Mass ratio] 0.8 {ratio} Normal [facility] Comment on above: Performed By: #### C MP, LIPA #### [facility] [address] [place] [address] Dr. Nu Love ALP [Catalytic activity/Vol] 31 U/L Critically low 46-116 [facility] Comment on above: Performed By: #### C MP, LIPA #### [facility] [address] [place] [address] Dr. Nu Love ALT [Catalytic activity/Vol] 16 U/L Normal 14-59 [facility] Comment on above: Performed By: #### C MP, LIPA #### [facility] [address] [address] [address] Nu Love Anion gap [Moles/Vol] 11.1 mmol/L Normal [facility] Comment on above: Performed By: #### C MP, LIPA #### [facility] [address] [address] [address] Nu Love AST [Catalytic activity/Vol] 7 U/L Critically low 15-37 [facility] Comment on above: Performed By: #### C MP, LIPA #### [facility] [address] [address] [address] Nu Love Bilirubin [Mass/Vol] 0.4 mg/dL Normal 0.2-1.0 [facility] Comment on above: Performed By: #### C MP, LIPA #### [facility] [address] [place] [address] Dr. Nu Love Calcium [Mass/Vol] 10.5 mg/dL Critically high 8.5-10.1 [facility] Comment on above: Performed By: #### C MP, LIPA #### [facility] [address] [address] [address] Nu Love Chloride [Moles/Vol] 99 mmol/L Normal 98-107 [facility] Comment on above: Performed By: #### C MP, LIPA #### [facility] [address] [address] [address] Nu Love CO2 [Moles/Vol] 30.9 mmol/L Normal 21.0-32.0 [facility] Comment on above: Performed By: #### C MP, LIPA #### [facility] [address] [address] [address] Nu Love Creatinine [Mass/Vol] 1.06 mg/dL Critically high 0.55-1.02 [facility] Comment on above: Performed By: #### C MP, LIPA #### [facility] [address] [address] [address] Nu Love EGFR-AF OMANI >60 Normal >=60 [facility] Comment on above: Performed By: #### C MP, LIPA #### [facility] [address] [address] [address] Nu Love EGFR-NON AF OMANI 52 mL/min/1.73m2 Critically low >=60 [facility] Comment on above: Performed By: #### C MP, LIPA #### [facility] [address] [place] [address] Dr. Nu Love Globulin (S) [Mass/Vol] 4.4 g/dL Normal [facility] Comment on above: Performed By: #### C MP, LIPA #### [facility] [address] [place] [address] Dr. Nu Love Glucose [Mass/Vol] 123 mg/dL Critically high 74-106 [facility] Comment on above: Performed By: #### C MP, LIPA #### [facility] [address] [place] [address] Dr. Nu Love Potassium [Moles/Vol] 4.0 mmol/L Normal 3.5-5.1 [facility] Comment on above: Performed By: #### C MP, LIPA #### [facility] [address] [place] [address] Dr. Nu Love Protein [Mass/Vol] 8.0 g/dL Normal 6.4-8.2 [facility] Comment on above: Performed By: #### C MP, LIPA #### [facility] [address] [place] [address] Dr. Nu Love Sodium [Moles/Vol] 137 mmol/L Normal 136-145 [facility] Comment on above: Performed By: #### C MP, LIPA #### [facility] [address] [place] [address] Dr. Nu Love Urea nitrogen [Mass/Vol] 20.0 mg/dL Critically high 7.0-18.0 [facility] Comment on above: Performed By: #### C MP, LIPA #### [facility] [address] [place] [address] Dr. Nu Love Urea nitrogen/Creatinine [Mass ratio] 18.9 mg/mg Normal [facility] Comment on above: Performed By: #### C MP, LIPA #### [facility] [address] [address] [address] Nu Love URINE MICROSCOPIC ONLYon BACTERIA MODERATE Abnormal NONE SEEN [facility] Comment on above: Performed By: #### U MICRO, ERUR #### [facility] [address] [address] [address] Nu Love Bacteria identified Cx Nom (U) INDICATED Normal [facility] Comment on above: Performed By: #### U MICRO, ERUR #### [facility] [address] [place] [address] Dr. Nu Love CAST SEEN Abnormal NONE SEEN [facility] Comment on above: Performed By: #### U MICRO, ERUR #### [facility] [address] [place] [address] Dr. Nu Love Crystals LM Nom (Urine sed) NONE SEEN Normal NONE SEEN [facility] Comment on above: Performed By: #### U MICRO, ERUR #### [facility] [address] [place] [address] Dr. Nu Love Epithelial cells LM Ql (Urine sed) MODERATE Abnormal NONE SEEN /RARE [facility] Comment on above: Performed By: #### U MICRO, ERUR #### [facility] [address] [place] [address] Dr. Nu Love HYALINE CAST RARE Normal [facility] Comment on above: Performed By: #### U MICRO, ERUR #### [facility] [address] [place] [address] Dr. Nu Love MUCOUS MODERATE Abnormal NONE SEEN [facility] Comment on above: Performed By: #### U MICRO, ERUR #### [facility] [address] [place] [address] Dr. Nu Love RBC 2-5 Abnormal 0-2 [facility] Comment on above: Performed By: #### U MICRO, ERUR #### [facility] [address] [place] [address] Dr. Nu Love WBC 10-20 Abnormal NONE SEEN [facility] Comment on above: Performed By: #### U MICRO, ERUR #### [facility] [address] [place], [place] [address] Dr. Nu Love WBC CELLULAR CAST RARE Normal [facility] Comment on above: Performed By: #### U MICRO, ERUR #### [facility] [address] [place], [place] [address] Dr. Nu Love WRIST RIGHT 3 VWSon 05-18-20 18 WRIST RIGHT 3 VWS [facility] [address] [place] [id number] Patient Name: JUAN DAUGHERTY : 1960 Sex: F Age: Race: White Pt. Location: Patient Status: O Ordered Date: 05/18/2018 12:40:00 PM Completed Date: 05/18/2018 12:42 PM Requesting Provider: GAUTAM ROBERTO Attending Provider: GAUTAM ROBERTO Report Copy To: CARRILLO MAYS Signs & Symptoms: S52.501A Unsp fracture of the lower end of right radius, init I10 History: [place] Comments: , , , Ordering Provider - GAUTAM ROBERTO PA-C , Exam: WRIST RIGHT 3 VWS WRIST RIGHT 3 VWS 05/18/2018 12:42 PM EST SIGNS AND SYMPTOMS: S52.501A Unsp fracture of the lower end of right radius, init I10 TECHNOLOGIST COMMENTS: patient states she felt a pop in right hand/ wrist complains of right wrist pain QUESTION FOR THE RADIOLOGIST: , , , Ordering Provider - GAUTAM ROBERTO PA-C , PROTOCOL: AP,Lateral and Oblique views were obtained. COMPARISON: March 23, 2018 FINDINGS: Soft tissues: Slightly improved swelling Bones: Healing distal radial fracture in unchanged and satisfactory alignment Joints: Minimal arthritis IMPRESSION: Healing distal radial fracture similar to prior study in good alignment Electronically signed by:Christopher Mcdermott. Transcribed by: [email or web address], User Resident: Electronically Signed by: CHRISTOPHER MCDERMOTT @ 05/18/2018 01:06 PM Normal [facility] Comment on above: Order Comment: , , = ========= , Ordering Provider - GAUTAM ROBERTO PA-C , SHOULDER RIGHTon 03-23-2018 SHOULDER RIGHT [facility] of Radiology [address] [place] [id number] Patient Name: JUAN DAUGHERTY : 1960 Sex: F Age: Race: White Pt. Location: Patient Status: Ordered Date: 03/23/2018 1:50:00 PM Completed Date: 03/23/2018 02:00 PM Requesting Provider: GAUTAM ROBERTO Attending Provider: Report Copy To: Signs & Symptoms: M96.621 Fx humerus fol insrt ortho implnt/prosth/bone plt, right arm I10 History: [place] Comments: , , , Ordering Provider - GAUTAM ROBERTO PA-C , Exam: SHOULDER RIGHT WRIST RIGHT 3 VWS, SHOULDER RIGHT 03/23/2018 2:00 PM EDT SIGNS AND SYMPTOMS: S52.501A Unsp fracture of the lower end of right radius, init I10 TECHNOLOGIST COMMENTS: ortho check for right shoulder and right wrist areas QUESTION FOR THE RADIOLOGIST: , , , Ordering Provider - GAUTAM ROBERTO PA-C , PROTOCOL: AP,Lateral and Oblique views were obtained. COMPARISON: None FINDINGS: Right wrist: Continued healing from prior study of November 24, 2017 along both the distal radial fracture in the hardware tracts. Osteoporosis and mild arthritis are similar to prior. Right shoulder: Continued healing from prior study of November 24, 2017 in satisfactory alignment. IMPRESSION: Healing right wrist and right proximal humeral fractures in satisfactory alignment with progression since prior Electronically signed by:Christopher Mcdermott. Transcribed by: [email or web address], User Resident: Electronically Signed by: CHRISTOPHER MCDERMOTT @ 03/23/2018 02:03 PM Normal [facility] Comment on above: Order Comment: , , = ========= , Ordering Provider - GAUTAM ROBERTO PA-C , WRIST RIGHT 3 VWSon 03-23-20 18 WRIST RIGHT 3 VWS [facility] of [facility]iology [address] [place] [id number] Patient Name: JUAN DAUGHERTY : 1960 Sex: F Age: Race: White Pt. Location: Patient Status: Ordered Date: 03/23/2018 1:50:00 PM Completed Date: 03/23/2018 02:00 PM Requesting Provider: GAUTAM ROBERTO Attending Provider: Report Copy To: Signs & Symptoms: S52.501A Unsp fracture of the lower end of right radius, init I10 History: [place] Comments: , , , Ordering Provider - GAUTAM ROBERTO PA-C , Exam: WRIST RIGHT 3 VWS WRIST RIGHT 3 VWS, SHOULDER RIGHT 03/23/2018 2:00 PM EDT SIGNS AND SYMPTOMS: S52.501A Unsp fracture of the lower end of right radius, init I10 TECHNOLOGIST COMMENTS: ortho check for right shoulder and right wrist areas QUESTION FOR THE RADIOLOGIST: , , , Ordering Provider - GAUTAM ROBERTO PA-C , PROTOCOL: AP,Lateral and Oblique views were obtained. COMPARISON: None FINDINGS: Right wrist: Continued healing from prior study of November 24, 2017 along both the distal radial fracture in the hardware tracts. Osteoporosis and mild arthritis are similar to prior. Right shoulder: Continued healing from prior study of November 24, 2017 in satisfactory alignment. IMPRESSION: Healing right wrist and right proximal humeral fractures in satisfactory alignment with progression since prior Electronically signed by:Christopher Mcdermott. Transcribed by: [email or web address], User Resident: Electronically Signed by: CHRISTOPHER MCDERMOTT @ 03/23/2018 02:03 PM Normal [facility] Comment on above: Order Comment: , , = ========= , Ordering Provider - GAUTAM ROBERTO PA-C , SHOULDER RIGHTon 11-24-2017 SHOULDER RIGHT [facility] Department of Radiology [address] [place] [id number] Patient Name: JUAN DAUGHERTY : 1960 Sex: F Age: Race: White Pt. Location: 84 Patient Status: Ordered Date: 11/24/2017 2:35:00 PM Completed Date: 11/24/2017 02:47 PM Requesting Provider: GAUTAM ROBERTO Attending Provider: Report Copy To: Signs & Symptoms: S52.501A Unsp fracture of the lower end of right radius, init I10 History: [place] Comments: , Views (X-RAY, SHOULDER): AP, Axillary , Views (X-RAY, SHOULDER): AP, Axillary , , , Ordering Provider - GAUTAM ROBERTO PA-C , Exam: SHOULDER RIGHT WRIST RIGHT 3 VWS, SHOULDER RIGHT 11/24/2017 2:47 PM EDT SIGNS AND SYMPTOMS: S52.501A Unsp fracture of the lower end of right radius, init I10 TECHNOLOGIST COMMENTS: ortho f/u for right wrist and right shoulder QUESTION FOR THE RADIOLOGIST: , Views (X-RAY, WRIST): PA, Lateral, Oblique , Views (X-RAY, WRIST): PA, Lateral, Oblique , , , Ordering Provider - GAUTAM ROBERTO PA-C , PROTOCOL: AP,Lateral and Oblique views were obtained. (accession [id number]), AP and Axillary views were obtained. (accession [id number]) FINDINGS: Right wrist: No change in alignment and some progression of healing along the distal radial fracture when compared to September 27, 2017. Right shoulder: Some interval healing along the slightly varus impacted humeral neck-proximal shaft fracture since September 27, 2017. IMPRESSION: Healing fractures in satisfactory and unchanged alignment Electronically signed by:Christopher Mcdermott. Transcribed by: [email or web address], User Resident: Electronically Signed by: CHRISTOPHER MCDERMOTT @ 11/24/2017 04:48 PM [facility] Comment on above: Order Comment: , [place] ws (X-RAY, SHOULDER): AP, Axillary , Views (X-RAY, SHOULDER): AP, Axillary , , , Ordering Provider - GAUTAM ROBERTO PA-C , WRIST RIGHT 3 [facility] 11-25-19 18 WRIST RIGHT 3 [facility] Department of Radiology [address] [place] [id number] Patient Name: JUAN DAUGHERTY : 1960 Sex: F Age: Race: White Pt. Location: Patient Status: Ordered Date: 11/24/2017 2:35:00 PM Completed Date: 11/24/2017 02:47 PM Requesting Provider: GAUTAM ROBERTO Attending Provider: Report Copy To: Signs & Symptoms: S52.501A Unsp fracture of the lower end of right radius, init I10 History: [place] Comments: , Views (X-RAY, WRIST): PA, Lateral, Oblique , Views (X-RAY, WRIST): PA, Lateral, Oblique , , , Ordering Provider - GAUTAM ROBERTO PA-C , Exam: WRIST RIGHT 3 [facility] WRIST RIGHT 3 VWS, SHOULDER RIGHT 11/24/2017 2:47 PM EDT SIGNS AND SYMPTOMS: S52.501A Unsp fracture of the lower end of right radius, init I10 TECHNOLOGIST COMMENTS: ortho f/u for right wrist and right shoulder QUESTION FOR THE RADIOLOGIST: , Views (X-RAY, WRIST): PA, Lateral, Oblique , Views (X-RAY, WRIST): PA, Lateral, Oblique , , , Ordering Provider - GAUTAM ROBERTO PA-C , PROTOCOL: AP,Lateral and Oblique views were obtained. (accession [id number]), AP and Axillary views were obtained. (accession [id number]) FINDINGS: Right wrist: No change in alignment and some progression of healing along the distal radial fracture when compared to September 27, 2017. Right shoulder: Some interval healing along the slightly varus impacted humeral neck-proximal shaft fracture since September 27, 2017. IMPRESSION: Healing fractures in satisfactory and unchanged alignment Electronically signed by:Christopher Mcdermott. Transcribed by: [email or web address], User Resident: Electronically Signed by: CHRISTOPHER MCDERMOTT @ 11/24/2017 04:48 PM Normal [facility] Comment on above: Order Comment: , [place] ws (X-RAY, WRIST): PA, Lateral, Oblique , Views (X-RAY, WRIST): PA, Lateral, Oblique , , , Ordering Provider - GAUTAM ROBERTO PA-C , SHOULDER RIGHTon 09-27-2017 SHOULDER RIGHT [facility] Department of Radiology [address] [place] [phone] Patient Name: JUAN DAUGHERTY : 1960 Sex: F Age: Race: White Pt. Location: 84 Patient Status: Ordered Date: 09/27/2017 1:35:00 PM Completed Date: 09/27/2017 01:33 PM Requesting Provider: KATALINA GLORIA Attending Provider: Report Copy To: Signs & Symptoms: S52.501D Unsp fx the lower end r rad, subs for clos fx w routn heal I10 History: [place] Comments: , , Views (X-RAY, SHOULDER): AP, Axillary , , , Ordering Provider - KATALINA GLORIA PA-C , Exam: SHOULDER RIGHT WRIST RIGHT 2 VWS, SHOULDER RIGHT 09/27/2017 1:09 PM EDT SIGNS AND SYMPTOMS: S52.501A Unsp fracture of the lower end of right radius, init I10 TECHNOLOGIST COMMENTS: ortho follow up rt wrist fracture 07/02/2017 (accession [id number]), ortho follow up rt shoulder fracture 07/03/2017 (accession [id number]) QUESTION FOR THE RADIOLOGIST: , , , Ordering Provider - GAUTAM ROBERTO PA-C , PROTOCOL: AP(PA) and Lateral views were obtained. (accession [id number]), AP and Axillary views were obtained. (accession [id number]) FINDINGS: Right wrist: Removal of splint since August 30, 2017 with healing distal radial metaphyseal fracture. Very osteoporotic bone locally but only minor arthritis. Right shoulder: There is impacted humeral neck fracture with slight comminution with interval removal of the K wires since August 30, 2017. Only limited healing similar to prior study. IMPRESSION: Right wrist and right shoulder fractures with no change in alignment and both showing early healing response Electronically signed by:Christopher Mcdermott. Transcribed by: [email or web address], User Resident: Electronically Signed by: CHRISTOPHER MCDERMOTT @ 09/27/2017 02:45 PM [facility] Comment on above: Order Comment: , , V iews (X-RAY, SHOULDER): AP, Axillary , , , Ordering Provider - KATALINA GLORIA PA-C , VITAMIN D 25-HYDROXYon 09-27 VITAMIN D 25-OH 33.0 ng/mL Normal 30.0-80.0 [facility] Comment on above: Result Comment: >80. 0 Toxicity possible Performed By: #### 3 [id number] #### [address] WRIST RIGHT 2 Son 09-28-19 18 WRIST RIGHT 2 [facility] Department of Radiology [address] [place] [phone] Patient Name: JUAN DAUGHERTY : 1960 Sex: F Age: Race: White Pt. Location: 84 Patient Status: O Ordered Date: 09/27/2017 12:40:00 PM Completed Date: 09/27/2017 01:09 PM Requesting Provider: GAUTAM ROBERTO Attending Provider: GAUTAM ROBERTO Report Copy To: CARRILLO MAYS Signs & Symptoms: S52.501A Unsp fracture of the lower end of right radius, init I10 History: [place] Comments: , , , Ordering Provider - GAUTAM ROBERTO PA-C , Exam: WRIST RIGHT 2 VWS WRIST RIGHT 2 VWS, SHOULDER RIGHT 09/27/2017 1:09 PM EDT SIGNS AND SYMPTOMS: S52.501A Unsp fracture of the lower end of right radius, init I10 TECHNOLOGIST COMMENTS: ortho follow up rt wrist fracture 07/02/2017 (accession [id number]), ortho follow up rt shoulder fracture 07/03/2017 (accession [id number]) QUESTION FOR THE RADIOLOGIST: , , , Ordering Provider - GAUTAM ROBERTO PA-C , PROTOCOL: AP(PA) and Lateral views were obtained. (accession [id number]), AP and Axillary views were obtained. (accession [id number]) FINDINGS: Right wrist: Removal of splint since August 30, 2017 with healing distal radial metaphyseal fracture. Very osteoporotic bone locally but only minor arthritis. Right shoulder: There is impacted humeral neck fracture with slight comminution with interval removal of the K wires since August 30, 2017. Only limited healing similar to prior study. IMPRESSION: Right wrist and right shoulder fractures with no change in alignment and both showing early healing response Electronically signed by:Christopher Mcdermott. Transcribed by: [email or web address], User Resident: Electronically Signed by: CHRISTOPHER MCDERMOTT @ 09/27/2017 02:45 PM Normal [facility] Comment on above: Order Comment: , , = ========= , Ordering Provider - GAUTAM ROBERTO PA-C , SHOULDER RIGHTon 08-30-2017 SHOULDER RIGHT [facility] Department of Radiology [address] [place] [id number] Patient Name: JUAN DAUGHERTY : 1960 Sex: F Age: Race: White Pt. Location: 84 Patient Status: Ordered Date: 08/30/2017 10:00:00 AM Completed Date: 08/30/2017 10:25 AM Requesting Provider: AUBREE ZAVALA Attending Provider: Report Copy To: Signs & Symptoms: M96.621 Fx humerus fol insrt ortho implnt/prosth/bone plt, right arm I10 History: [place] Comments: , , , Ordering Provider - AUBREE ZAVALA MD , Exam: SHOULDER RIGHT SHOULDER RIGHT 08/30/2017 10:25 AM EDT SIGNS AND SYMPTOMS: M96.621 Fx humerus fol insrt ortho implnt/prosth/bone plt, right arm I10 TECHNOLOGIST COMMENTS: right shoulder pain, right wrist pain, f/u QUESTION FOR THE RADIOLOGIST: , , , Ordering Provider - AUBREE ZAVALA MD , PROTOCOL: AP,[place] and Axillary views were obtained. COMPARISON: August 18, 2017 FINDINGS: Soft tissues: No acute findings Bones: Healing proximal humeral shaft fracture with slight varus impaction still secured by 2 pins. The other K wires have been removed Joints: AC joint spurring Glenohumeral joint intact IMPRESSION: Healing proximal humeral fracture in satisfactory alignment Electronically signed by:Christopher Mcdermott. Transcribed by: [email or web address], User Resident: Electronically Signed by: CHRISTOPHER MCDERMOTT @ 08/30/2017 01:23 PM [facility] Comment on above: Order Comment: , , = ========= , Ordering Provider - AUBREE ZAVALA MD , WRIST RIGHT 2 VWSon 08-31-19 18 WRIST RIGHT 2 VWS [facility] Department of Radiology [address] [place] [phone] Patient Name: JUAN DAUGHERTY : 1960 Sex: F Age: Race: White Pt. 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 COMPARISON: August 18, 2017 FINDINGS: Soft tissues: Overlying splint with mild swelling Bones: Distal radial fracture healing with hardware removal Joints: Satisfactory alignment IMPRESSION: Status post hardware removal with healing distal radial fracture in good alignment Electronically signed by:Chrsitopher Mcdermott. Transcribed by: [email or web address], User Resident: Electronically Signed by: CHRISTOPHER MCDERMOTT @ 08/30/2017 01:21 PM Normal [facility] Comment on above: Order Comment: , , = ========= , Ordering Provider - AUBREE ZAVALA MD , Encounters Encounter Date Encounter Type Care Provider Facility Start: 08-13-2022 Encounter for genera l adult medical examination without abnormal findings GELACIO WASHINGTON [facility] Start: 08-05-2022 End: 08-06-2022 ambulatory GELACIO WASHINGTON Facility:[facility] Start: 08-05-2022 End: 08-06-2022 Encounter for general adult medical examination without abnormal findings GELACIO WASHINGTON Facility:[facility] Start: 04-13-2022 End: 04-15-2022 Evaluation and management of inpatient GELACIO WASHINGTON Facility:[facility] Start: 08-20-2018 End: 08-21-2018 Patient encounter procedure GAUTAM SHEARERO Facility:[facility] Start: 05-18-2018 End: 05-19-2018 Patient encounter procedure GAUTAM SHEARERO Facility:[facility] Start: 03-23-2018 End: 03-24-2018 Patient encounter procedure GAUTAM SHEARERO Facility:[facility] Start: 11-24-2017 End: 11-25-2017 Patient encounter procedure GAUTAM SHEARERO Facility:[facility] Start: 09-27-2017 End: 09-28-2017 Patient encounter procedure GAUTAM SHEARERO Facility:[facility] Start: 08-30-2017 End: 08-31-2017 Patient encounter procedure GAUTAM SHEARERO Facility:[facility] Procedures Date Procedure Procedure Detail Performing Clinician Start: 04-13-2022 Inspection of Perito vikas Cavity, Percutaneous Endoscopic Approach GELACIO PADMINI Start: 04-13-2022 Resection of Appendi x, Open Approach GELACIOSHASHANK WASHINGTON Payers Date Payer Category Payer Medicaid [id number] 1960 Unknown [id number] 2.16.8 [id number] 1960 Unknown [id number] 2.16.8 [id number] 1960 Unknown [id number] 2.16.8 [id number] 1960 Unknown [id number] 2.16.8 [id number] 1960 Unknown [id number] 2.16.8 [id number] 1960 Unknown [id number] 2.16.8 [id number] 1960 Unknown [id number] 2.16.84 [id number] 1960 Unknown [id number] 2.16.84 [id number] Unknown [id number] Unknown [id number] Unknown [id number] Summary Purpose Family History No Family History Records FoundNo Family History Records Found Advance Directives No Advanced Directives Records FoundNo Advanced Directives Records Found Additional Source Comments INFORMATION SOURCE (unrecogn ized section and content) DATE CREATED AUTHOR 08/23/2018 [facility] DATE CREATED AUTHOR AUTHOR'S DOUGIZ ATTARYN 08/17/2022 [facility] FOR RECORDS PERTAINING TO PATIENTS WHO ARE OR HAVE BEEN ENROLLED IN A CHEMICAL DEPENDENCY/SUBSTANCEABUSE PROGRAM, SOME INFORMATION MAY BE OMITTED. This clinical summary was aggregated from multiple sources. Caution should be exercised in using it in the provision of clinical care. This summary normalizes information from multiple sources, and as a consequence, information in this document may materially change the coding, format and clinical context of patient data. In addition, data may be omitted in some cases. CLINICAL DECISIONS SHOULD BE BASED ON THE PRIMARY CLINICAL RECORDS. [employer] provides no warranty or guarantee of the accuracy or completeness of information in this document.
[2023-10-07 08:55] LABS: Basophils Percent Auto 0.7 % (0.2-2.0); Eosinophils Absolute Auto 0.1 10^3/uL (0.0-0.7); Eosinophils Percent Auto 3.2 % (0.9-7.0); Hematocrit 46.9 % (36.0-48.0); Lymphocytes Absolute Auto 2.2 10^3/uL (1.2-3.8); Lymphocytes Percent Auto 50.2 % (20.5-60.0); Mean Corpuscular Hemoglobin 30.6 pg (26.7-34.0); Mean Corpuscular Volume 95.7 fL (81.0-99.0); Mean Platelet Volume 11.2 fL (9.5-13.5); Monocytes Absolute Auto 0.6 10^3/uL (0.3-0.8); Monocytes Percent Auto 14.3 % (1.7-12.0); Neutrophils Absolute Auto 1.4 10^3/uL (1.4-6.5); Neutrophils Percent Auto 31.6 % (43.0-75.0); Platelet Count 214 10^3/uL (150-450); Red Cell Distribution Width 12.8 % (11.0-15.0); White Blood Count 4.3 10^3/uL (4.0-11.0)
[2023-10-07 09:45] LABS: Estimated Average Glucose 114 mg/dL; Glycohemoglobin A1C 5.6 % (4.5-6.2)
[2023-10-07 13:09] LABS: Alanine Aminotransferase 21 U/L (14-59); Albumin Globulin Ratio 1.2; Albumin Level 4.2 g/dL (3.4-5.0); Alkaline Phosphatase 35 U/L (46-116); Anion Gap 9.3; Aspartate Amino Transferase 13 U/L (15-37); BUN Creatinine Ratio 24.2; Bilirubin Total 0.5 mg/dL (0.2-1.0); Calcium 9.9 mg/dL (8.5-10.1); Carbon Dioxide 32.1 mmol/L (21.0-32.0); Chloride 105 mmol/L (98-107); Chol HDL Ratio 3.5; Cholesterol 265 mg/dL (<=200); Estimated GFR (African America >60 (>=60); Estimated GFR (Non-African Ame >60 (>=60); Free T3 2.86 pg/mL (2.18-3.98); Globulin 3.4 g/dL; Glucose 102 mg/dL (74-106); HDL Cholesterol 76 mg/dL (40-60); Potassium 4.4 mmol/L (3.5-5.1); Sodium 142 mmol/L (136-145); Thyroid Stimulating Hormone 2.378 uIU/mL (0.358-3.740); Total Protein 7.6 g/dL (6.4-8.2); Triglycerides 112 mg/dL (<=150); VLDL CHOLESTEROL 22.4 mg/dL
[2023-10-09 15:30] LABS: Insulin 7.8 uIU/mL (2.6-24.9)
== END 2023-10-07 08:07 | disposition home or self-care (01) ==
LOC: LAB 08:09
PROVIDERS: PCP Nurse Practitioner Family; Visit Provider Nurse Practitioner Family
DX: Z00.00 Encounter for general adult medical examination without abnormal findings (principal)
CPT/HCPCS: 36415; 80053; 80061; 82306; 83036; 83525; 83540; 84436; 84443; 84481; 85025

== ENCOUNTER 2024-10-28 09:09 | Outpatient (OUT) | payer MEDICARE, SELFPAY ==
[2024-10-28 09:29] LABS: Basophils Absolute Auto 0.1 10^3/uL (0.0-0.1); Basophils Percent Auto 0.7 % (0.2-2.0); Eosinophils Absolute Auto 0.2 10^3/uL (0.0-0.7); Eosinophils Percent Auto 2.2 % (0.9-7.0); Hematocrit 43.9 % (36.0-48.0); Hemoglobin 14.6 g/dL (12.0-16.0); Lymphocytes Percent Auto 29.4 % (20.5-60.0); Mean Corpuscular HGB Conc 33.3 g/dL (29.9-35.2); Mean Corpuscular Hemoglobin 31.7 pg (26.7-34.0); Mean Corpuscular Volume 95.4 fL (81.0-99.0); Mean Platelet Volume 11.6 fL (9.5-13.5); Monocytes Absolute Auto 0.9 10^3/uL (0.3-0.8); Monocytes Percent Auto 12.8 % (1.7-12.0); Neutrophils Absolute Auto 3.8 10^3/uL (1.4-6.5); Neutrophils Percent Auto 54.9 % (43.0-75.0); Platelet Count 192 10^3/uL (150-450); Red Cell Distribution Width 13.1 % (11.0-15.0)
[2024-10-28 11:39] LABS: Alanine Aminotransferase 19 U/L (14-59); Albumin Globulin Ratio 1.1; Albumin Level 3.5 g/dL (3.4-5.0); Alkaline Phosphatase 42 U/L (46-116); Anion Gap 8.8; Aspartate Amino Transferase 11 U/L (15-37); Bilirubin Total 0.3 mg/dL (0.2-1.0); Calcium 9.4 mg/dL (8.5-10.1); Carbon Dioxide 33.5 mmol/L (21.0-32.0); Chloride 107 mmol/L (98-107); Chol HDL Ratio 3.7; Cholesterol 256 mg/dL (<=200); Estimated GFR (African America >60 (>=60 mL/min/1.73m^2); Estimated GFR (Non-African Ame >60 (>=60 mL/min/1.73m^2); Free T3 2.21 pg/mL (2.18-3.98); Globulin 3.2 g/dL; Glucose 104 mg/dL (74-106); HDL Cholesterol 70 mg/dL (40-60); Potassium 4.3 mmol/L (3.5-5.1); Sodium 145 mmol/L (136-145); Thyroid Stimulating Hormone 2.072 uIU/mL (0.358-3.740); Total Protein 6.7 g/dL (6.4-8.2); Triglycerides 80 mg/dL (<=150)
[2024-10-28 12:14] LABS: Estimated Average Glucose 111 mg/dL; Glycohemoglobin A1C 5.5 % (4.5-6.2)
[2024-10-29 07:07] LABS: Insulin 5.8 uIU/mL (2.6-24.9)
== END 2024-10-28 09:10 | disposition home or self-care (01) ==
PROVIDERS: PCP Nurse Practitioner Family; Visit Provider Nurse Practitioner Family
DX: J44.9 Chronic obstructive pulmonary disease, unspecified (principal); E11.9 Type 2 diabetes mellitus without complications; E03.9 Hypothyroidism, unspecified; E55.9 Vitamin D deficiency, unspecified; E78.5 Hyperlipidemia, unspecified; D64.9 Anemia, unspecified; I10 Essential (primary) hypertension
CPT/HCPCS: 36415; 80053; 80061; 82306; 83036; 83525; 83540; 84436; 84443; 84481; 85025